=== PATIENT | female | born 1945 | race Caucasian/White ===

== ENCOUNTER 2021-06-22 14:53 | Emergency (ER) | payer OTHER, SELFPAY ==
[2021-06-22] VITALS (10 sets, daily range): BP systolic 67–220; BP diastolic 35–110; PULSE 74–120; RESP 16–32; TEMP 35.1–36; O2SAT 82–96; BMI 48.0
--- NOTE | ~2021-06-22 | XR_ITS ---
EXAMINATION: XR CHEST CLINICAL INFORMATION: Shortness of breath. COMPARISON: None TECHNIQUE: Frontal view of the chest was obtained. FINDINGS: The cardiomediastinal silhouette is markedly abnormal. Possible differential diagnostic consideration would include cardiomegaly versus pericardial effusion or adjacent paracardiac mass. The aerated lung [place] bilaterally appear clear. No evidence of any definite pleural effusion. Mild pulmonary venous congestion is present. XR/XR chest 1V IMPRESSION: Abnormal chest radiograph showing evidence of abnormal enlarged cardiomediastinal silhouette, may represent cardiomegaly versus pericardial effusion or adjacent pericardiac mass. Mild pulmonary venous congestion is noted.
--- NOTE | ~2021-06-22 | CT_ITS ---
EXAMINATION: CT CHEST WITHOUT CONTRAST CLINICAL INFORMATION: Shortness of breath with abnormal chest radiograph COMPARISON: Chest radiograph earlier today TECHNIQUE: Multidetector volumetric CT imaging of the chest was done. Axial MIP volume rendering provided. Sagittal and coronal reformatted images were obtained. This CT examination was performed using dose optimization techniques as appropriate, variously including the following: *Automated exposure control *Adjustment of mA and/or kV according to patient size (this includes techniques or standardized protocols for targeted exams where dose is matched to indication/reason for exam; i.e. extremities or head) *Use of iterative reconstruction technique DLP: 538 mGy-cm FINDINGS: LUNGS AND PLEURA: A small right-sided pleural effusion is present along with a trace left pleural effusion. Dependent atelectasis is present bilaterally. No suspicious lung masses are seen MEDIASTINUM: There is a very large pericardial effusion present within normal sized heart. The effusion measures fluid density and not blood density. The SVC is mildly dilated and tamponade cannot be excluded. Mediastinal lymph nodes are present the largest cluster in the region of the AP window measuring 9.2 x 3.5 x 2.7 cm other smaller lymph nodes are present in the superior mediastinum with largest measuring 2.0 x 1.8 x 1.9 cm. Evaluation for hilar lymphadenopathy is difficult without IV contrast. AXILLA: No lymphadenopathy. UPPER ABDOMEN: A small amount of ascites is present. OSSEOUS STRUCTURES: Mild degenerative changes present in the spine. No bony destructive lesions seen. CT/CT chest wo con IMPRESSION: The heart is normal-sized but there is a very large pericardial effusion present and tamponade with mildly dilated SVC cannot be excluded. Pathologic mediastinal lymphadenopathy as described above. Small right and trace left pleural effusion. Malignancy as a cause of the above-mentioned findings is certainly in the differential diagnosis. Fleischner guidelines were followed.
--- NOTE | 2021-06-22 16:01 | ECG_ITS ---
Test Reason : SHORTNESS OF BREATH Blood Pressure : / mmHG Vent. Rate : 086 BPM Atrial Rate : 000 BPM P-R Int : 000 ms QRS Dur : 074 ms QT Int : 376 ms P-R-T Axes : 000 018 -28 degrees QTc Int : 449 ms Artifact in tracing Probably sinus rhythm Low voltage QRS Nonspecific T wave abnormality Abnormal ECG When compared with ECG of 03-APR-2019 23:33, QRS voltage has decreased Nonspecific T wave abnormality now evident in Lateral leads Referred By: Cathy Cooper Electronically Signed By:BONILLA COSTELLO
--- NOTE | 2021-06-22 16:23 | ED_ITS ---
HPI - SOB/Dyspnea General Chief Complaint: Dyspnea <Cathy Cooper CNP - Last Filed: 06/22/21 21:07> Stated Complaint: SOB X'S WEEKS,ANXIOUS PER EMS <Cathy Cooper CNP - Last Filed: 06/22/21 21:07> Time Seen by Provider: 06/22/21 15:24 <Cathy Cooper CNP - Last Filed: 06/22/21 21:07> Source: patient and EMS <Cathy Cooper CNP - Last Filed: 06/22/21 21:07> Mode of arrival: EMS <Cathy Cooper CNP - Last Filed: 06/22/21 21:07> Limitations: no limitations <Cathy Cooper CNP - Last Filed: 06/22/21 21:07> History of Present Illness HPI Narrative: Patient is a 76-year-old female with a past medical history of anxiety, hypertension, hypothyroidism, hyperlipidemia. She presents emergency department for shortness of breath over the past 2 weeks. She reports her shortness of breath has been worse over the past few days. Today while in the bathroom she felt too weak to stand and therefore she sat down on the floor was unable to get up on her own. Reportedly she was on the floor to 3 hours until family presented to the home and called EMS. Upon EMS arrival she was in respiratory distress, with a room air O2 saturation at 82% tachycardic 120-130, and very cold to touch. She was placed on a non-rebreather. Patient does admit that she has had all the windows open in her [place] as [facility] and is concerned about the sherwin COVID-19. She has been vaccinated and recei alex a booster, [place]. She did have a COVID-19 exposure 3 weeks ago but states that she has been tested a few times since then with negative results. She denies any recent fevers, dizziness or lightheadedness, chest pain, palpitations, cough, nausea, vomiting, diarrhea, constipation, abdominal pain, dysuria, urinary frequency/urgency/hesitancy, pedal edema. Denies any personal history of DVT/PE, recent surgery, personal history of cancer. <Cathy Cooper CNP - Last Filed: 06/22/21 21:07> MD elicited complaint: shortness of breath and anxiety <Cathy Cooper BO - Last Filed: 06/22/21 21:07> Onset (ago): week(s) <Cathy Cooper BO - Last Filed: 06/22/21 21:07> Timing: progressively worsening <Cathy Cooper GREENSKEEPER LABORER - Last Filed: 06/22/21 21:07> Severity: severe <Cathy Cooper GREENSKEEPER LABORER - Last Filed: 06/22/21 21:07> Exacerbating factors: exertion and movement <Cathy CooperBO - Last Filed: 06/22/21 21:07> Relieving factors: nothing <Cathy Cooper GREENSKEEPER LABORER - Last Filed: 06/22/21 21:07> Treatment prior to arrival: oxygen <Cathy Cooper BO - Last Filed: 06/22/21 21:07> Related Data Home oxygen amount: none <Cathy Cooper BO - Last Filed: 06/22/21 21:07> Allergies/Adverse Reactions: Allergies Allergy/AdvReac Type Severity Reaction Status Date / Time Penicillins Allergy Unknown UNKNOWN Unverified 02/05/20 19:46 [PENICILLINS] <Cathy Cooper BO - Last Filed: 06/22/21 21:07> Review of Systems Verdana 4l Review of Systems: Verdana 4d [place] 4Bd Constitutional: + weakness, fatigue. [place] 4d No weight loss, fever, chills.. [place] 4Bd HEENT: [place] 4d No visual loss, blurred vision, double vision or yellow sclera. No hearing loss, sneezing, congestion, runny nose or sore throat. ArialArial 4Bd Skin: No rash or itching. Cardiovascular: No chest pain, chest pressure or chest discomfort. No palpitations or pedal edema. Respiratory: + shortness of breath, dyspnea with exertion. No cough or sputum production. Gastrointestinal: No anorexia, nausea, vomiting or diarrhea. No abdominal pain or blood in stool. Genitourinary: No burning micturition. No urinary frequency or incontinence. Neurologic: No headache, dizziness, syncope, unilateral weakness, ataxia, numbness or tingling in the extremities. No change in bowel or bladder control. Musculoskeletal: No muscle pain, back pain, joint pain or stiffness. Hematologic: No bleeding or bruising. Lymphatics: No enlarged lymph nodes. Psychiatric: + anxiety. No depression. Endocrine: No reports of sweating. No cold or heat intolerance. No polyuria or polydipsia. <Cathy Cooper CNP - Last Filed: 06/22/21 21:07> [facility] Past Medical History Attestation statement: The following information was validated with the patient. <Cathy Cooper CNP - Last Filed: 06/22/21 21:07> Source: old records reviewed <Cathy Cooper CNP - Last Filed: 06/22/21 21:07> Social History Social History: Social History Alcohol intake: never Use of substances other than those prescribed or required for medical reasons: No Advance Directives: No Advance Directives Information Provided: No <Cathy Cooper CNP - Last Filed: 06/22/21 21:07> Physical Exam Verdana 4l Vital Signs: Verdana 4d Verdana 4d Vital Signs: Verdana 4d Verdana 4Bd Last Vital Signs Verdana 4d Invoice Control Clerk New 4d Invoice Control Clerk New 4d Temp 96.8 F 06/22/21 20:57 Invoice Control Clerk New 4d Pulse 87 06/22/21 20:57 Invoice Control Clerk New 4d Resp 22 H 06/22/21 20:57 BP 89/69 L 06/22/21 20:57 Pulse Ox 96 06/22/21 20:57 Oxygen Flow Rate 15 06/22/21 16:29 BMI result Body Mass Index 48.0 Vital signs have been reviewed and appeared to be correct. Hypotension 95/52. Tachycardia 110 to 120s. Tachypnea respiratory rate from 25-35. Hypoxia temp 95.2? rectally. Oxygen saturation difficult to obtain initially; room air at 82%, attempted 6 L via nasal cannula with O2 sat 86%, placed on non-rebreather at 15 L with O2 sat at 92%. <Cathy Cooper CNP - Last Filed: 06/22/21 21:07> Vital Signs: Last Vital Signs Temp 96.8 F 06/22/21 20:57 Pulse 87 06/22/21 20:57 Resp 22 H 06/22/21 20:57 BP 89/69 L 06/22/21 20:57 Pulse Ox 96 06/22/21 20:57 Oxygen Flow Rate 15 06/22/21 16:29 BMI result Body Mass Index 48.0 <Kulwinder Mcdonald MD - Last Filed: 06/22/21 20:35> Appearance: Alert.?Oriented to person, place and time. Anxious. Eyes: Pupils equal, round and reactive to light.?EOMi ENT: Oropharynx clear, mucous membranes dry, mild cyanosis of lips. Ears and nose without masses, lesions or deformities. Tympanic membranes clear bilaterally. Trachea midline. Neck: Normal inspection.? Neck supple.?? CVS: Heart sounds normal. Tachycardia. Palpable 2+ radial, DP/PT pulses Respiratory: increased work of breathing, pursed lips, lung sounds diminished in left lower lobe.? Abdomen: Soft and non-tender. Normoactive bowel sounds. No pulsatile mass.?? Skin: Skin cool and dry.?Pale.?Decreased skin turgor.?? Extremities: No lower extremity edema.? No calf ttp? Neuro: Moves all extremities spontaneously. Sensation intact bilaterally. No focal neuro deficits. Unable to assess gait due to distress. <Cathy Cooper CNP - Last Filed: 06/22/21 21:07> Course Course Course Narrative: 1545: First contact with patient. Patient is a 76-year-old female presenting to the emergency department in respiratory distress. She is alert, verbal, speaking 3-4 word sentences, answers questions appropriately overall, though she is very anxious appearing and tends to lose focus of her conversation and thorax for thoughts towards her levels of anxiety. Initially, she was unable to maintain O2 saturation on room air or with 6 L via nasal cannula without desaturating less than 86%. Maintained on normal rebreather at [address] Mcdonald to bedside with myself for evaluation. Respiratory therapy called, plan for high-flow, obtain ABG. Patient to receive DuoNeb and Solu-Medrol IV. CBC to evaluate for leukocytosis and anemia, CMP to evaluate for abnormal electrolytes, renal function, abnormal hepatic function, TSH to evaluate for abnormal thyroid function, likely from D-dimer to evaluate for PE, BNP, chest x- ray to evaluate for infiltrate, consolidation, mass or overt pulmonary edema, student of the chest to evaluate for PE, troponin and EKG to evaluate for arrhythmia, or ischemia, lactic acid and blood cultures as she currently meets SIRS criteria. Suspect that her hypothermia may be in relation to environmental temperature in her home, tachycardia secondary to her anxiety and tachypnea secondary to hyperventilation, suspecting a viral infection based on recent COVID-19 exposure and her hypoxia, do not suspect bacterial etiology at this time, will obtain COVID/influenza/RSV testing. <Cathy Cooper CNP - Last Filed: 06/22/21 21:07> Reevaluation(s) Reevaluation #1: Leukocytosis with WBC 15.9 in addition to lactic acidosis 4.6, personal review of chest x-ray concerning for possible consolidation or pleural effusion. Bacterial infection suspected at this time, ceftriaxone IV and azithromycin IV ordered in addition to normal saline 30 mg/kg fluid bolus. <Cathy Cooper CNP - Last Filed: 06/22/21 21:07> Time: 16:56 <Cathy Cooper CNP - Last Filed: 06/22/21 21:07> Reevaluation #2: Respiratory therapy at bedside and patient placed on high-flow and obtaining ABG at this time. Serum labs revealed acute kidney injury with BUN 116 and creatinine 10.52, total bilirubin 1.6, AST and ALT mildly 36/52. TSH is elevated at 5.16 but normal free T4 1.05 troponin is elevated at 18.9, will obtain repeat in 3 hours. Given onset of acute kidney injury will insert schwartz catheter, unable to obtain CT angio to exclude PE at this time, D-dimer is elevated 3114, will obtain non-contrast chest CT to further evaluate for intrathoracic pathologies including pneumonia, mass, pericardial effusion or pleural effusion. I had an at length discussion with patient at this time regarding the severity of her illness. Patient is adamant that she wants to be a do not intubate, but she is uncertain as to whether she wants any chest compressions performed, I did clarify to her that the two are [id number] in the resuscitation process, but she wishes to speak with her sister first. At this point, patient does report that she in fact has tested positive for COVID- 19, it is unclear exactly when this occurred however she does report that she was exposed to her son around [place] time, over 1 month ago, and subsequently had positive testing afterwards, COVID-19 testing today is negative <Cathy CooperBO - Last Filed: 06/22/21 21:07> Time: 17:20 <Cathy Currie BO Cooper - Last Filed: 06/22/21 21:07> Reevaluation #3: ABG reveals metabolic acidosis with respiratory alkalosis with PO2 101. Remains on high-flow oxygen at this time, O2 sat 92% with manual BP obtained 102/68. Reported breathing has improved while being on high-flow oxygen. Mentating appropriately, oriented x4, does appear fatigued. Awaiting CT of the chest at this time, remains under close observation. <Cathy Currie BO Cooper - Last Filed: 06/22/21 21:07> Time: 17:45 <Cathy Currie BO Cooper - Last Filed: 06/22/21 21:07> Additional Reevaluation(s): 1999: hypotensive 82/54 with a manual BP, repeat lactic acid 4.0, additional 1L normal saline ordered, review of CT concerning for pericardial effusion with now concern for tamponade given hypotension, initial radiology reading is pending. Spoke with Dr. Mcdonald, interventional Radiology unavailable at this time therefore unable to obtain pericardiocentesis, planning for transfer to the [facility] awaiting call back at this time. In light of all the findings, discussed code status again, as she has prior uncertainty, and she is requesting to be a full code at time. 2049: Urinalysis is positive for nitrites, has already been covered with Rocephin. CT of the chest confirms large pericardial effusion and tamponade. Small right and trace left pleural effusion. Mediastinal lymphadenopathy. Repeat delta troponin is 20.1, increased from 18.9 3 hours prior. Pressure 89/59, heart rate 87, respiratory rate 22, temp 96.8?, 96% on high-flow nasal cannula. Preparing for transfer to [facility]. Attending note. Patient with dyspnea and a metabolic acidosis presenting after a syncopal event and being found on the floor of her bathroom. Findings in the emergency department show lactic acidosis, leukocytosis, and abnormal chest x-ray with a question of pericardial effusion versus mass. Renal failure with a creatinine of 10. Dry CT scan shows large pericardial effusion. I would confirmed with bedside ultrasound. Blood pressure and now is drifting down with the last pressure of 82/58. Patient is still mentating well. At this point she appears to be developing pericardial tamponade. I discussed this with Dr. Schuster at [facility] Emergency Department. She will be transferred for Interventional Radiology pericardiocentesis. <Cathy Cooper CNP - Last Filed: 06/22/21 21:07> 2000: hypotensive 82/54 with a manual BP, additional 1L normal saline ordered, review of CT concerning for pericardial effusion with now concern for tamponade given hypotension, initial radiology reading is pending. Spoke with Dr. Mcdonald, interventional Radiology unavailable at this time therefore unable to obtain pericardiocentesis, planning for transfer to the [facility] awaiting call back at this time. Attending note. Patient with dyspnea and a metabolic acidosis presenting after a syncopal event and being found on the floor of her bathroom. Findings in the emergency department show lactic acidosis, leukocytosis, and abnormal chest x-ray with a question of pericardial effusion versus mass. Renal failure with a creatinine of 10. Dry CT scan shows large pericardial effusion. I would confirmed with bedside ultrasound. Blood pressure and now is drifting down with the last pressure of 82/58. Patient is still mentating well. At this point she appears to be developing pericardial tamponade. I discussed this with Dr. Schuster at [facility] Emergency Department. She will be transferred for Interventional Radiology pericardiocentesis. <Kulwinder Mcdonald MD - Last Filed: 06/22/21 20:35> MDM - SOB/Dyspnea Medical Records Attestation: I reviewed the patient's medical records. <Cathy Cooper CNP - Last Filed: 06/22/21 21:07> Lab Data Attestation: I reviewed the patient's lab results. <Cathy Cooper CNP - Last Filed: 06/22/21 21:07> Result diagrams: : 06/22/21 16:28 06/22/21 17:01 <Cathy Cooper CNP - Last Filed: 06/22/21 21:07> Labs: Lab Results 06/22/21 06/22/21 06/22/21 Range/Units 16:28 16:28 16:28 WBC 15.9 H (4.8-10.8) X10*3/uL RBC 4.70 (4.20-5.50) X10*6/uL Hgb 13.4 (12.0-16.0) g/dl Hct 42.5 (37.0-47.0) % MCV 90.4 (80.0-98.0) fL MCH 28.5 (27.0-33.0) pg MCHC 31.5 (31.0-35.0) g/dl RDW 17.3 H (11.0-16.0) % Plt Count 323 (160-400) X10*3/uL MPV 10.8 (9.4-12.3) fL Immature Gran % (Auto) 0.7 H (0.0-0.4) % Neut % (Auto) 88.2 H (45-73) % Lymph % (Auto) 4.9 L (20-40) % [place] % (Auto) 6.1 (2-11) % Eos % (Auto) 0.0 (0-4) % Baso % (Auto) 0.1 (0-2) % Lymph # (Auto) 0.8 L (1.2-4.9) X10*3/uL [place] # (Auto) 1.0 (0.1-1.2) X10*3/uL Eos # (Auto) 0.0 (0.0-0.4) X10*3/uL Baso # (Auto) 0.0 (0.0-0.2) X10*3/uL Abs Immat Gran (auto) 0.11 H (0.00-0.03) X10*3/uL Absolute Neuts (auto) 14.0 H (2.0-8.3) x10*3/uL Absolute Nucleated RBC 0.140 H (0.0-0.012) X10*3/uL Nucleated RBC % (auto) 0.9 H (0.0-0.2) /100WBC D-Dimer High Sensitivty NG/ML O2 Saturation % ABG pH at Pt Temp (7.35-7.45) ABG pCO2 at Pt Temp (32-45) mmHg ABG pO2 at Pt Temp (83-108) mmHg ABG HCO3 (22-26) mmol/L ABG Base Excess (Actual) mmol/L Sodium (135-145) mmol/L Potassium (3.3-5.1) mmol/L Chloride (96-108) mmol/L Carbon Dioxide (22-29) mmol/L Anion Gap (12-20) BUN (9-16) mg/dL Creatinine (0.5-1.4) mg/dL Estim Creat Clear Calc Estimated GFR Random Glucose (60-115) mg/dL Lactic Acid 4.6 H* (0.5-2.0) mmol/L Lactic Acid F/U @ 2Hr (0.5-2.0) mmol/L Calcium (8.4-10.2) mg/dL Total Bilirubin (0.0-1.0) mg/dL AST (5-31) U/L ALT (0-31) U/L Alkaline Phosphatase (39-117) U/L Troponin I High Sens 18.9 H (<3.5-17.0) ng/L B-Natriuretic Peptide 163 H (<100) pg/mL Total Protein (6.5-8.0) g/dL Albumin (3.5-5.0) g/dL TSH (0.32-4.0) uIU/mL Free T4 (0.71-1.85) ng/dL Urine Color Urine Appearance Urine pH (5.0-8.0) Ur Specific [place] (1.005-1.025) Urine Protein (NEG-TRACE) MG/DL Urine Glucose (UA) (NEG) MG/DL Urine Ketones (NEG) MG/DL Urine Blood (NEG) Urine Nitrite (NEG) Ur Leukocyte Esterase (NEG) Urine RBC (0) /HPF Urine WBC (0-4) /HPF Ur Squamous Epith Cells /LPF Urine Bacteria /LPF Influenza Type A (PCR) (Negative) Influenza Type B (PCR) (Negative) RSV RNA Qual (PCR) (Negative) SARS-CoV-2 RNA (RT-PCR) (Negative) 06/22/21 06/22/21 06/22/21 Range/Units 16:28 16:30 17:01 WBC (4.8-10.8) X10*3/uL RBC (4.20-5.50) X10*6/uL Hgb (12.0-16.0) g/dl Hct (37.0-47.0) % MCV (80.0-98.0) fL MCH (27.0-33.0) pg MCHC (31.0-35.0) g/dl RDW (11.0-16.0) % Plt Count (160-400) X10*3/uL MPV (9.4-12.3) fL Immature Gran % (Auto) (0.0-0.4) % Neut % (Auto) (45-73) % Lymph % (Auto) (20-40) % [place] % (Auto) (2-11) % Eos % (Auto) (0-4) % Baso % (Auto) (0-2) % Lymph # (Auto) (1.2-4.9) X10*3/uL [place] # (Auto) (0.1-1.2) X10*3/uL Eos # (Auto) (0.0-0.4) X10*3/uL Baso # (Auto) (0.0-0.2) X10*3/uL Abs Immat Gran (auto) (0.00-0.03) X10*3/uL Absolute Neuts (auto) (2.0-8.3) x10*3/uL Absolute Nucleated RBC (0.0-0.012) X10*3/uL Nucleated RBC % (auto) (0.0-0.2) /100WBC D-Dimer High Sensitivty 3114 NG/ML O2 Saturation % ABG pH at Pt Temp (7.35-7.45) ABG pCO2 at Pt Temp (32-45) mmHg ABG pO2 at Pt Temp (83-108) mmHg ABG HCO3 (22-26) mmol/L ABG Base Excess (Actual) mmol/L Sodium 139 (135-145) mmol/L Potassium 5.3 H (3.3-5.1) mmol/L Chloride 97 (96-108) mmol/L Carbon Dioxide 18 L (22-29) mmol/L Anion Gap 29 H (12-20) BUN 116 H (9-16) mg/dL Creatinine 10.52 H* (0.5-1.4) mg/dL Estim Creat Clear Calc 6.0 Estimated GFR 4 Random Glucose 125 H (60-115) mg/dL Lactic Acid (0.5-2.0) mmol/L Lactic Acid F/U @ 2Hr (0.5-2.0) mmol/L Calcium 8.4 (8.4-10.2) mg/dL Total Bilirubin 1.6 H (0.0-1.0) mg/dL AST 36 H (5-31) U/L ALT 52 H (0-31) U/L Alkaline Phosphatase 77 (39-117) U/L Troponin I High Sens (<3.5-17.0) ng/L B-Natriuretic Peptide (<100) pg/mL Total Protein 7.1 (6.5-8.0) g/dL Albumin 3.9 (3.5-5.0) g/dL TSH (0.32-4.0) uIU/mL Free T4 (0.71-1.85) ng/dL Urine Color Urine Appearance Urine pH (5.0-8.0) Ur Specific [place] (1.005-1.025) Urine Protein (NEG-TRACE) MG/DL Urine Glucose (UA) (NEG) MG/DL Urine Ketones (NEG) MG/DL Urine Blood (NEG) Urine Nitrite (NEG) Ur Leukocyte Esterase (NEG) Urine RBC (0) /HPF Urine WBC (0-4) /HPF Ur Squamous Epith Cells /LPF Urine Bacteria /LPF Influenza Type A (PCR) NEGATIVE (Negative) Influenza Type B (PCR) NEGATIVE (Negative) RSV RNA Qual (PCR) NEGATIVE (Negative) SARS-CoV-2 RNA (RT-PCR) NEGATIVE (Negative) 06/22/21 06/22/21 06/22/21 Range/Units 17:01 17:32 19:58 WBC (4.8-10.8) X10*3/uL RBC (4.20-5.50) X10*6/uL Hgb (12.0-16.0) g/dl Hct (37.0-47.0) % MCV (80.0-98.0) fL MCH (27.0-33.0) pg MCHC (31.0-35.0) g/dl RDW (11.0-16.0) % Plt Count (160-400) X10*3/uL MPV (9.4-12.3) fL Immature Gran % (Auto) (0.0-0.4) % Neut % (Auto) (45-73) % Lymph % (Auto) (20-40) % [place] % (Auto) (2-11) % Eos % (Auto) (0-4) % Baso % (Auto) (0-2) % Lymph # (Auto) (1.2-4.9) X10*3/uL [place] # (Auto) (0.1-1.2) X10*3/uL Eos # (Auto) (0.0-0.4) X10*3/uL Baso # (Auto) (0.0-0.2) X10*3/uL Abs Immat Gran (auto) (0.00-0.03) X10*3/uL Absolute Neuts (auto) (2.0-8.3) x10*3/uL Absolute Nucleated RBC (0.0-0.012) X10*3/uL Nucleated RBC % (auto) (0.0-0.2) /100WBC D-Dimer High Sensitivty NG/ML O2 Saturation 96.0 % ABG pH at Pt Temp 7.28 L (7.35-7.45) ABG pCO2 at Pt Temp 31 L (32-45) mmHg ABG pO2 at Pt Temp 101 (83-108) mmHg ABG HCO3 15 L (22-26) mmol/L ABG Base Excess -10.2 mmol/L (Actual) Sodium (135-145) mmol/L Potassium (3.3-5.1) mmol/L Chloride (96-108) mmol/L Carbon Dioxide (22-29) mmol/L Anion Gap (12-20) BUN (9-16) mg/dL Creatinine (0.5-1.4) mg/dL Estim Creat Clear Calc Estimated GFR Random Glucose (60-115) mg/dL Lactic Acid (0.5-2.0) mmol/L Lactic Acid F/U @ 2Hr (0.5-2.0) mmol/L Calcium (8.4-10.2) mg/dL Total Bilirubin (0.0-1.0) mg/dL AST (5-31) U/L ALT (0-31) U/L Alkaline Phosphatase (39-117) U/L Troponin I High Sens (<3.5-17.0) ng/L B-Natriuretic Peptide (<100) pg/mL Total Protein (6.5-8.0) g/dL Albumin (3.5-5.0) g/dL TSH 5.16 H (0.32-4.0) uIU/mL Free T4 1.05 (0.71-1.85) ng/dL Urine Color DK YELLOW Urine Appearance HAZY Urine pH 5.0 (5.0-8.0) Ur Specific [place] >= 1.030 H (1.005-1.025) Urine Protein 3+ H (NEG-TRACE) MG/DL Urine Glucose (UA) 100 H (NEG) MG/DL Urine Ketones 5 (NEG) MG/DL Urine Blood TRACE (NEG) Urine Nitrite POS H (NEG) Ur Leukocyte Esterase NEG (NEG) Urine RBC 1-4 (0) /HPF Urine WBC 0 (0-4) /HPF Ur Squamous Epith Cells 1+ /LPF Urine Bacteria 3+ /LPF Influenza Type A (PCR) (Negative) Influenza Type B (PCR) (Negative) RSV RNA Qual (PCR) (Negative) SARS-CoV-2 RNA (RT-PCR) (Negative) 06/22/21 06/22/21 Range/Units 20:14 20:14 WBC (4.8-10.8) X10*3/uL RBC (4.20-5.50) X10*6/uL Hgb (12.0-16.0) g/dl Hct (37.0-47.0) % MCV (80.0-98.0) fL MCH (27.0-33.0) pg MCHC (31.0-35.0) g/dl RDW (11.0-16.0) % Plt Count (160-400) X10*3/uL MPV (9.4-12.3) fL Immature Gran % (Auto) (0.0-0.4) % Neut % (Auto) (45-73) % Lymph % (Auto) (20-40) % [place] % (Auto) (2-11) % Eos % (Auto) (0-4) % Baso % (Auto) (0-2) % Lymph # (Auto) (1.2-4.9) X10*3/uL [place] # (Auto) (0.1-1.2) X10*3/uL Eos # (Auto) (0.0-0.4) X10*3/uL Baso # (Auto) (0.0-0.2) X10*3/uL Abs Immat Gran (auto) (0.00-0.03) X10*3/uL Absolute Neuts (auto) (2.0-8.3) x10*3/uL Absolute Nucleated RBC (0.0-0.012) X10*3/uL Nucleated RBC % (auto) (0.0-0.2) /100WBC D-Dimer High Sensitivty NG/ML O2 Saturation % ABG pH at Pt Temp (7.35-7.45) ABG pCO2 at Pt Temp (32-45) mmHg ABG pO2 at Pt Temp (83-108) mmHg ABG HCO3 (22-26) mmol/L ABG Base Excess (Actual) mmol/L Sodium (135-145) mmol/L Potassium (3.3-5.1) mmol/L Chloride (96-108) mmol/L Carbon Dioxide (22-29) mmol/L Anion Gap (12-20) BUN (9-16) mg/dL Creatinine (0.5-1.4) mg/dL Estim Creat Clear Calc Estimated GFR Random Glucose (60-115) mg/dL Lactic Acid (0.5-2.0) mmol/L Lactic Acid F/U @ 2Hr 4.0 H* (0.5-2.0) mmol/L Calcium (8.4-10.2) mg/dL Total Bilirubin (0.0-1.0) mg/dL AST (5-31) U/L ALT (0-31) U/L Alkaline Phosphatase (39-117) U/L Troponin I High Sens 20.1 H (<3.5-17.0) ng/L B-Natriuretic Peptide (<100) pg/mL Total Protein (6.5-8.0) g/dL Albumin (3.5-5.0) g/dL TSH (0.32-4.0) uIU/mL Free T4 (0.71-1.85) ng/dL Urine Color Urine Appearance Urine pH (5.0-8.0) Ur Specific [place] (1.005-1.025) Urine Protein (NEG-TRACE) MG/DL Urine Glucose (UA) (NEG) MG/DL Urine Ketones (NEG) MG/DL Urine Blood (NEG) Urine Nitrite (NEG) Ur Leukocyte Esterase (NEG) Urine RBC (0) /HPF Urine WBC (0-4) /HPF Ur Squamous Epith Cells /LPF Urine Bacteria /LPF Influenza Type A (PCR) (Negative) Influenza Type B (PCR) (Negative) RSV RNA Qual (PCR) (Negative) SARS-CoV-2 RNA (RT-PCR) (Negative) <Cathy Cooper, BO - Last Filed: 06/22/21 21:07> Lab Results 06/22/21 06/22/21 06/22/21 Range/Units 16:28 16:28 16:28 WBC 15.9 H (4.8-10.8) X10*3/uL RBC 4.70 (4.20-5.50) X10*6/uL Hgb 13.4 (12.0-16.0) g/dl Hct 42.5 (37.0-47.0) % MCV 90.4 (80.0-98.0) fL MCH 28.5 (27.0-33.0) pg MCHC 31.5 (31.0-35.0) g/dl RDW 17.3 H (11.0-16.0) % Plt Count 323 (160-400) X10*3/uL MPV 10.8 (9.4-12.3) fL Immature Gran % (Auto) 0.7 H (0.0-0.4) % Neut % (Auto) 88.2 H (45-73) % Lymph % (Auto) 4.9 L (20-40) % [place] % (Auto) 6.1 (2-11) % Eos % (Auto) 0.0 (0-4) % Baso % (Auto) 0.1 (0-2) % Lymph # (Auto) 0.8 L (1.2-4.9) X10*3/uL [place] # (Auto) 1.0 (0.1-1.2) X10*3/uL Eos # (Auto) 0.0 (0.0-0.4) X10*3/uL Baso # (Auto) 0.0 (0.0-0.2) X10*3/uL Abs Immat Gran (auto) 0.11 H (0.00-0.03) X10*3/uL Absolute Neuts (auto) 14.0 H (2.0-8.3) x10*3/uL Absolute Nucleated RBC 0.140 H (0.0-0.012) X10*3/uL Nucleated RBC % (auto) 0.9 H (0.0-0.2) /100WBC D-Dimer High Sensitivty NG/ML O2 Saturation % ABG pH at Pt Temp (7.35-7.45) ABG pCO2 at Pt Temp (32-45) mmHg ABG pO2 at Pt Temp (83-108) mmHg ABG HCO3 (22-26) mmol/L ABG Base Excess (Actual) mmol/L Sodium (135-145) mmol/L Potassium (3.3-5.1) mmol/L Chloride (96-108) mmol/L Carbon Dioxide (22-29) mmol/L Anion Gap (12-20) BUN (9-16) mg/dL Creatinine (0.5-1.4) mg/dL Estim Creat Clear Calc Estimated GFR Random Glucose (60-115) mg/dL Lactic Acid 4.6 H* (0.5-2.0) mmol/L Lactic Acid F/U @ 2Hr (0.5-2.0) mmol/L Calcium (8.4-10.2) mg/dL Total Bilirubin (0.0-1.0) mg/dL AST (5-31) U/L ALT (0-31) U/L Alkaline Phosphatase (39-117) U/L Troponin I High Sens 18.9 H (<3.5-17.0) ng/L B-Natriuretic Peptide 163 H (<100) pg/mL Total Protein (6.5-8.0) g/dL Albumin (3.5-5.0) g/dL TSH (0.32-4.0) uIU/mL Free T4 (0.71-1.85) ng/dL Urine Color Urine Appearance Urine pH (5.0-8.0) Ur Specific [place] (1.005-1.025) Urine Protein (NEG-TRACE) MG/DL Urine Glucose (UA) (NEG) MG/DL Urine Ketones (NEG) MG/DL Urine Blood (NEG) Urine Nitrite (NEG) Ur Leukocyte Esterase (NEG) Urine RBC (0) /HPF Urine WBC (0-4) /HPF Ur Squamous Epith Cells /LPF Urine Bacteria /LPF Influenza Type A (PCR) (Negative) Influenza Type B (PCR) (Negative) RSV RNA Qual (PCR) (Negative) SARS-CoV-2 RNA (RT-PCR) (Negative) 06/22/21 06/22/21 06/22/21 Range/Units 16:28 16:30 17:01 WBC (4.8-10.8) X10*3/uL RBC (4.20-5.50) X10*6/uL Hgb (12.0-16.0) g/dl Hct (37.0-47.0) % MCV (80.0-98.0) fL MCH (27.0-33.0) pg MCHC (31.0-35.0) g/dl RDW (11.0-16.0) % Plt Count (160-400) X10*3/uL MPV (9.4-12.3) fL Immature Gran % (Auto) (0.0-0.4) % Neut % (Auto) (45-73) % Lymph % (Auto) (20-40) % [place] % (Auto) (2-11) % Eos % (Auto) (0-4) % Baso % (Auto) (0-2) % Lymph # (Auto) (1.2-4.9) X10*3/uL [place] # (Auto) (0.1-1.2) X10*3/uL Eos # (Auto) (0.0-0.4) X10*3/uL Baso # (Auto) (0.0-0.2) X10*3/uL Abs Immat Gran (auto) (0.00-0.03) X10*3/uL Absolute Neuts (auto) (2.0-8.3) x10*3/uL Absolute Nucleated RBC (0.0-0.012) X10*3/uL Nucleated RBC % (auto) (0.0-0.2) /100WBC D-Dimer High Sensitivty 3114 NG/ML O2 Saturation % ABG pH at Pt Temp (7.35-7.45) ABG pCO2 at Pt Temp (32-45) mmHg ABG pO2 at Pt Temp (83-108) mmHg ABG HCO3 (22-26) mmol/L ABG Base Excess (Actual) mmol/L Sodium 139 (135-145) mmol/L Potassium 5.3 H (3.3-5.1) mmol/L Chloride 97 (96-108) mmol/L Carbon Dioxide 18 L (22-29) mmol/L Anion Gap 29 H (12-20) BUN 116 H (9-16) mg/dL Creatinine 10.52 H* (0.5-1.4) mg/dL Estim Creat Clear Calc 6.0 Estimated GFR 4 Random Glucose 125 H (60-115) mg/dL Lactic Acid (0.5-2.0) mmol/L Lactic Acid F/U @ 2Hr (0.5-2.0) mmol/L Calcium 8.4 (8.4-10.2) mg/dL Total Bilirubin 1.6 H (0.0-1.0) mg/dL AST 36 H (5-31) U/L ALT 52 H (0-31) U/L Alkaline Phosphatase 77 (39-117) U/L Troponin I High Sens (<3.5-17.0) ng/L B-Natriuretic Peptide (<100) pg/mL Total Protein 7.1 (6.5-8.0) g/dL Albumin 3.9 (3.5-5.0) g/dL TSH (0.32-4.0) uIU/mL Free T4 (0.71-1.85) ng/dL Urine Color Urine Appearance Urine pH (5.0-8.0) Ur Specific [place] (1.005-1.025) Urine Protein (NEG-TRACE) MG/DL Urine Glucose (UA) (NEG) MG/DL Urine Ketones (NEG) MG/DL Urine Blood (NEG) Urine Nitrite (NEG) Ur Leukocyte Esterase (NEG) Urine RBC (0) /HPF Urine WBC (0-4) /HPF Ur Squamous Epith Cells /LPF Urine Bacteria /LPF Influenza Type A (PCR) NEGATIVE (Negative) Influenza Type B (PCR) NEGATIVE (Negative) RSV RNA Qual (PCR) NEGATIVE (Negative) SARS-CoV-2 RNA (RT-PCR) NEGATIVE (Negative) 06/22/21 06/22/21 06/22/21 Range/Units 17:01 17:32 19:58 WBC (4.8-10.8) X10*3/uL RBC (4.20-5.50) X10*6/uL Hgb (12.0-16.0) g/dl Hct (37.0-47.0) % MCV (80.0-98.0) fL MCH (27.0-33.0) pg MCHC (31.0-35.0) g/dl RDW (11.0-16.0) % Plt Count (160-400) X10*3/uL MPV (9.4-12.3) fL Immature Gran % (Auto) (0.0-0.4) % Neut % (Auto) (45-73) % Lymph % (Auto) (20-40) % [place] % (Auto) (2-11) % Eos % (Auto) (0-4) % Baso % (Auto) (0-2) % Lymph # (Auto) (1.2-4.9) X10*3/uL [place] # (Auto) (0.1-1.2) X10*3/uL Eos # (Auto) (0.0-0.4) X10*3/uL Baso # (Auto) (0.0-0.2) X10*3/uL Abs Immat Gran (auto) (0.00-0.03) X10*3/uL Absolute Neuts (auto) (2.0-8.3) x10*3/uL Absolute Nucleated RBC (0.0-0.012) X10*3/uL Nucleated RBC % (auto) (0.0-0.2) /100WBC D-Dimer High Sensitivty NG/ML O2 Saturation 96.0 % ABG pH at Pt Temp 7.28 L (7.35-7.45) ABG pCO2 at Pt Temp 31 L (32-45) mmHg ABG pO2 at Pt Temp 101 (83-108) mmHg ABG HCO3 15 L (22-26) mmol/L ABG Base Excess -10.2 mmol/L (Actual) Sodium (135-145) mmol/L Potassium (3.3-5.1) mmol/L Chloride (96-108) mmol/L Carbon Dioxide (22-29) mmol/L Anion Gap (12-20) BUN (9-16) mg/dL Creatinine (0.5-1.4) mg/dL Estim Creat Clear Calc Estimated GFR Random Glucose (60-115) mg/dL Lactic Acid (0.5-2.0) mmol/L Lactic Acid F/U @ 2Hr (0.5-2.0) mmol/L Calcium (8.4-10.2) mg/dL Total Bilirubin (0.0-1.0) mg/dL AST (5-31) U/L ALT (0-31) U/L Alkaline Phosphatase (39-117) U/L Troponin I High Sens (<3.5-17.0) ng/L B-Natriuretic Peptide (<100) pg/mL Total Protein (6.5-8.0) g/dL Albumin (3.5-5.0) g/dL TSH 5.16 H (0.32-4.0) uIU/mL Free T4 1.05 (0.71-1.85) ng/dL Urine Color DK YELLOW Urine Appearance HAZY Urine pH 5.0 (5.0-8.0) Ur Specific [place] >= 1.030 H (1.005-1.025) Urine Protein 3+ H (NEG-TRACE) MG/DL Urine Glucose (UA) 100 H (NEG) MG/DL Urine Ketones 5 (NEG) MG/DL Urine Blood TRACE (NEG) Urine Nitrite POS H (NEG) Ur Leukocyte Esterase NEG (NEG) Urine RBC 1-4 (0) /HPF Urine WBC 0 (0-4) /HPF Ur Squamous Epith Cells 1+ /LPF Urine Bacteria 3+ /LPF Influenza Type A (PCR) (Negative) Influenza Type B (PCR) (Negative) RSV RNA Qual (PCR) (Negative) SARS-CoV-2 RNA (RT-PCR) (Negative) 06/22/21 06/22/21 Range/Units 20:14 20:14 WBC (4.8-10.8) X10*3/uL RBC (4.20-5.50) X10*6/uL Hgb (12.0-16.0) g/dl Hct (37.0-47.0) % MCV (80.0-98.0) fL MCH (27.0-33.0) pg MCHC (31.0-35.0) g/dl RDW (11.0-16.0) % Plt Count (160-400) X10*3/uL MPV (9.4-12.3) fL Immature Gran % (Auto) (0.0-0.4) % Neut % (Auto) (45-73) % Lymph % (Auto) (20-40) % [place] % (Auto) (2-11) % Eos % (Auto) (0-4) % Baso % (Auto) (0-2) % Lymph # (Auto) (1.2-4.9) X10*3/uL [place] # (Auto) (0.1-1.2) X10*3/uL Eos # (Auto) (0.0-0.4) X10*3/uL Baso # (Auto) (0.0-0.2) X10*3/uL Abs Immat Gran (auto) (0.00-0.03) X10*3/uL Absolute Neuts (auto) (2.0-8.3) x10*3/uL Absolute Nucleated RBC (0.0-0.012) X10*3/uL Nucleated RBC % (auto) (0.0-0.2) /100WBC D-Dimer High Sensitivty NG/ML O2 Saturation % ABG pH at Pt Temp (7.35-7.45) ABG pCO2 at Pt Temp (32-45) mmHg ABG pO2 at Pt Temp (83-108) mmHg ABG HCO3 (22-26) mmol/L ABG Base Excess (Actual) mmol/L Sodium (135-145) mmol/L Potassium (3.3-5.1) mmol/L Chloride (96-108) mmol/L Carbon Dioxide (22-29) mmol/L Anion Gap (12-20) BUN (9-16) mg/dL Creatinine (0.5-1.4) mg/dL Estim Creat Clear Calc Estimated GFR Random Glucose (60-115) mg/dL Lactic Acid (0.5-2.0) mmol/L Lactic Acid F/U @ 2Hr 4.0 H* (0.5-2.0) mmol/L Calcium (8.4-10.2) mg/dL Total Bilirubin (0.0-1.0) mg/dL AST (5-31) U/L ALT (0-31) U/L Alkaline Phosphatase (39-117) U/L Troponin I High Sens 20.1 H (<3.5-17.0) ng/L B-Natriuretic Peptide (<100) pg/mL Total Protein (6.5-8.0) g/dL Albumin (3.5-5.0) g/dL TSH (0.32-4.0) uIU/mL Free T4 (0.71-1.85) ng/dL Urine Color Urine Appearance Urine pH (5.0-8.0) Ur Specific [place] (1.005-1.025) Urine Protein (NEG-TRACE) MG/DL Urine Glucose (UA) (NEG) MG/DL Urine Ketones (NEG) MG/DL Urine Blood (NEG) Urine Nitrite (NEG) Ur Leukocyte Esterase (NEG) Urine RBC (0) /HPF Urine WBC (0-4) /HPF Ur Squamous Epith Cells /LPF Urine Bacteria /LPF Influenza Type A (PCR) (Negative) Influenza Type B (PCR) (Negative) RSV RNA Qual (PCR) (Negative) SARS-CoV-2 RNA (RT-PCR) (Negative) <Kulwinder Mcdonald MD - Last Filed: 06/22/21 20:35> ABG Data ABG results: ABG reveals pH 7.28, pCO2 31, PO2 101, HCO3 15. <Cathy Cooper CNP - Last Filed: 06/22/21 21:07> Attestation: I personally reviewed and interpreted this ABG as follows: <Cathy Cooper CNP - Last Filed: 06/22/21 21:07> Interpretation: Metabolic acidosis with respiratory alkalosis <Cathy Cooper CNP - Last Filed: 06/22/21 21:07> Imaging Data Chest x-ray: Attestation: I personally reviewed and interpreted this imaging study as follows: <Cathy Cooper CNP - Last Filed: 06/22/21 21:07> Radiologist's impression: IMPRESSION: Abnormal chest radiograph showing evidence of abnormal enlarged cardiomediastinal silhouette, may represent cardiomegaly versus pericardial effusion or adjacent pericardiac mass. Mild pulmonary venous congestion is noted. <Cathy Cooper CNP - Last Filed: 06/22/21 21:07> CT scan - chest: Attestation: I personally reviewed and interpreted this imaging study as follows: <Cathy Cooper CNP - Last Filed: 06/22/21 21:07> Radiologist's impression: IMPRESSION: The heart is normal-sized but there is a very large pericardial effusion present and tamponade with mildly dilated SVC cannot be excluded. Pathologic mediastinal lymphadenopathy as described above. Small right and trace left pleural effusion. Malignancy as a cause of the above-mentioned findings is certainly in the differential diagnosis. ? Fleischner guidelines were followed. <Cathy Cooper CNP - Last Filed: 06/22/21 21:07> ECG Data Attestation: I personally reviewed and interpreted this ECG as follows: <Cathy Cooper CNP - Last Filed: 06/22/21 21:07> ECG interpretation date: 06/22/21 <Cathy Cooper CNP - Last Filed: 06/22/21 21:07> ECG interpretation time: 15:45 <Cathy Cooper CNP - Last Filed: 06/22/21 21:07> Interpretation: Rate: 86 Rhythm:? Accelerated junctional [place]:? Normal? Normal QRS complex, low voltage?? qTC: 449 prior studies:? Unavailable The study has been interpreted contemporaneously by me. <Cathy Cooper CNP - Last Filed: 06/22/21 21:07> Critical Care Time Critical Care Time Critical Care Time: Yes <Cathy Cooper CNP - Last Filed: 06/22/21 21:07> Total Critical Care Time: 120 <Cathy Cooper CNP - Last Filed: 06/22/21 21:07> Attestation: I personally attest to this time spent taking care of the patient. <Cathy Cooper CNP - Last Filed: 06/22/21 21:07> Discharge Plan Discharge Clinical Impression: Acute pericardial effusion, Acute respiratory distress, Cardiac tamponade, Urinary tract infection, Acute kidney injury <Cathy Cooper CNP - Last Filed: 06/22/21 21:07> Patient Disposition: [facility] <Cathy Cooper CNP - Last Filed: 06/22/21 21:07> Transfer Details: [facility] for pericardiocentesis, accepting physician Dr. Schuster <Cathy Cooper CNP - Last Filed: 06/22/21 21:07> [facility] for pericardiocentesis, accepting physician Dr. Schuster <Kulwinder Mcdonald MD - Last Filed: 06/22/21 20:35>
[2021-06-22] MEDS: LORazepam 2 MG/ML VIAL 0.5 MG IVPUSH (16:32)
[2021-06-22] MEDS: methylPREDNISolone Sod Succ 125 MG/2 ML VIAL IVPUSH (16:33)
[2021-06-22 16:35] LABS: MANUAL DIFF FLAG NO
[2021-06-22 16:40] LABS: Basophils Percent Auto 0.1 % (0-2); Hemoglobin 13.4 g/dl (12.0-16.0); Imm Gran Abs Auto 0.11 X10*3/uL (0.00-0.03); Imm Gran Pct Auto 0.7 % (0.0-0.4); Mean Corpuscular HGB Conc 31.5 g/dl (31.0-35.0); Monocytes Percent Auto 6.1 % (2-11)
[2021-06-22 16:47] LABS: Hematocrit 42.5 % (37.0-47.0); Lymphocytes Absolute Auto 0.8 X10*3/uL (1.2-4.9); Lymphocytes Percent Auto 4.9 % (20-40); Mean Corpuscular Hemoglobin 28.5 pg (27.0-33.0); Mean Corpuscular Volume 90.4 fL (80.0-98.0); Mean Platelet Volume 10.8 fL (9.4-12.3); NRBC Pct Auto 0.9 /100WBC (0.0-0.2); Neutrophils Percent Auto 88.2 % (45-73); Platelet Count 323 X10*3/uL (160-400); Red Cell Distribution Width 17.3 % (11.0-16.0); White Blood Count 15.9 X10*3/uL (4.8-10.8)
[2021-06-22 16:51] LABS: D Dimer High Sensitivity 3114 NG/ML; Lactic Acid 4.6 mmol/L (0.5-2.0)
[2021-06-22 16:58] LABS: B Type Natriuretic Peptide 163 pg/mL (<100); Troponin-I High Sensitivity 18.9 ng/L (<3.5-17.0)
[2021-06-22 17:14] LABS: Influenza A PCR NEGATIVE (Negative); Influenza B PCR NEGATIVE (Negative); Resp Syncy Virus RNA Qual PCR NEGATIVE (Negative); SARS COV2 PCR INHOUSE NEGATIVE (Negative)
[2021-06-22] MEDS: cefTRIAXone sodium 1 GM in 0.9 % Sodium Chloride 50 ML IV (17:14)
[2021-06-22] MEDS: 0.9 % Sodium Chloride 3,810.18 ML 3810.18 ML IV (17:15)
[2021-06-22 17:23] LABS: Alanine Aminotransferase 52 U/L (0-31); Albumin Level 3.9 g/dL (3.5-5.0); Alkaline Phosphatase 77 U/L (39-117); Anion Gap 29 (12-20); Aspartate Amino Transferase 36 U/L (5-31); Bilirubin Total 1.6 mg/dL (0.0-1.0); Blood Urea Nitrogen 116 mg/dL (9-16); Calcium 8.4 mg/dL (8.4-10.2); Carbon Dioxide 18 mmol/L (22-29); Chloride 97 mmol/L (96-108); Estimated Glomerular Filt Rate 4; Glucose Random 125 mg/dL (60-115); Potassium 5.3 mmol/L (3.3-5.1); Sodium 139 mmol/L (135-145); Total Protein 7.1 g/dL (6.5-8.0)
[2021-06-22 17:40] LABS: ABG Base Excess -10.2 mmol/L; ABG HCO3 15 mmol/L (22-26); ABG pCO2 31 mmHg (32-45); ABG pH 7.28 (7.35-7.45); ABG pO2 101 mmHg (83-108)
[2021-06-22 17:40] LABS: TSH reflex Free T4 5.16 uIU/mL (0.32-4.0)
[2021-06-22 17:42] LABS: ABG Refer to POC result
[2021-06-22] MEDS: Albuterol/Iprat 2.5/0.5MG 3 ML AMPUL.NEB INHALE (17:51)
[2021-06-22] MEDS: Azithromycin 500 MG in 0.9 % Sodium Chloride 250 ML 125 MG IV (17:55)
--- NOTE | 2021-06-22 18:03 | PC.NURSE ---
Pt comes in via EMS with c/o SOB x 2 weeks, was using the bathroom and due to weakness,brought herself to the floor, was unable to get up x 3 hours. Family found her on the floor and called 911. Pt is A&OX4, hypoxic, 82% on room air upon arrival and cold to touch. Lungs are diminished in the bases bilaterally with exp. wheezes in the upper lobes. Pt denies pain at this time. Pt rectal temp found to be 95.2, gilberto hugger placed on pt. Pt on 15L NRB, then changed to HiFlow. Pt meet spesis criteria, fluids and antibiotics documented in JUL. Pt self repositions in bed. Awaiting dispo, will continue to monitor.
[2021-06-22 18:16] LABS: Free T4 (Free Thyroxine) 1.05 ng/dL (0.71-1.85)
[2021-06-22 18:34] LABS: Reflex Lactate? Lactic Acid Added
[2021-06-22 20:04] LABS: Appearance Urine HAZY; Color Urine DK YELLOW; Glucose Urine UA 100 MG/DL (NEG); Leukocyte Esterase Urine NEG (NEG); Nitrite Urine POS (NEG); Specific Gravity - Urine >= 1.030 (1.005-1.025); UACC Culture Trigger YES; Urine Blood TRACE (NEG); Urine Ketones 5 MG/DL (NEG); Urine Protein 3+ MG/DL (NEG-TRACE)
[2021-06-22 20:11] LABS: Bacteria Urine 3+ /LPF; Squamous Epithelial Cell Urine 1+ /LPF; WBC Urine 0 /HPF (0-4)
[2021-06-22] MEDS: 0.9 % Sodium Chloride 1,000 ML 999 ML IV (20:18)
[2021-06-22 20:39] LABS: Troponin-I High Sensitivity 20.1 ng/L (<3.5-17.0)
--- NOTE | 2021-06-22 20:40 | PC.NURSE ---
Received critical from lab: Lactic 4.0 Cathy, provider, made aware
--- NOTE | 2021-06-22 21:39 | PC.NURSE ---
nurse to nurse report given to Valeria HENDERSON at [facility]
[2021-06-22 22:16] LABS: Reflex Lactate? 2 Y
== END 2021-06-22 21:41 | disposition short-term general hospital (02) ==
PROVIDERS: Nurse Practitioner Family; Emergency Provider Emergency Medicine; PCP Internal Medicine
DX: R06.02 Shortness of breath (principal); I10 Essential (primary) hypertension; F41.9 Anxiety disorder, unspecified; F43.0 Acute stress reaction; Z20.822 Contact with and (suspected) exposure to COVID-19; Z79.899 Other long term (current) drug therapy
CPT/HCPCS: 0241U; 36415; 71045; 71250; 80053; 81001; 82803; 83605; 83880; 84439; 84443; 84484; 85025; 85379; 87040; 87086; 93005; 94640; 96361; 96365; 96375; 99285; 99291; 99292; J0456; J0696; J2060; J2930